=== PATIENT | male | born 1990 | race Caucasian/White ===

== ENCOUNTER 2021-09-22 20:50 | Emergency (ER) | payer OTHER ==
[~2021-09-22] VITALS: Ht 182.9 cm; Wt 190.0 kg
[2021-09-23] MEDS ORDERED: MAGN296S68 PO (00:40)
[2021-09-23] MEDS ORDERED: methylnaltrexone br 12mg/0.6ml inj***SubQ only SQ ONE (00:40)
[2021-09-23] MEDS ORDERED: BISA-78 PO (00:40)
[2021-09-23] MEDS ORDERED: bisacodyl 5mg tablet.DR PO ONE (00:40)
[2021-09-23 00:58] VITALS: BP 139/89
== END 2021-09-23 00:59 | disposition home or self-care (01) ==
LOC: ER 20:53
DX: K59.00 Constipation, unspecified (principal); G89.29 Other chronic pain; Z79.899 Other long term (current) drug therapy
CPT/HCPCS: 96372; 99283; J2212

== ENCOUNTER 2021-10-13 20:36 | Emergency (ER) | payer OTHER ==
[~2021-10-13] VITALS: Ht 182.9 cm; Wt 90.9 kg
[~2021-10-13 20:36] MED LIST: BISA-78 PO; MAGN296S68 PO
[2021-10-13 21:19] VITALS: BP 128/87
[2021-10-14] MEDS ORDERED: GLYC-23 RC (00:11)
[2021-10-14] MEDS ORDERED: bisacodyl 5mg tablet.DR PO STA (00:11)
[2021-10-14] MEDS ORDERED: BISA-78 PO (00:11)
== END 2021-10-14 00:32 | disposition home or self-care (01) ==
LOC: ER 20:36
DX: K59.00 Constipation, unspecified (principal); G89.29 Other chronic pain; Z79.899 Other long term (current) drug therapy
CPT/HCPCS: 99282

== ENCOUNTER 2021-10-14 14:51 | Emergency (ER) | payer OTHER ==
[~2021-10-14] VITALS: Ht 182.9 cm; Wt 100.0 kg
[~2021-10-14 14:51] MED LIST changes: +GLYC-23 RC
[2021-10-14 15:05] VITALS: BP 156/99
[2021-10-14] MEDS ORDERED: lactulose 20gm/30ml cup PO ONE (15:25)
[2021-10-14] MEDS ORDERED: methylnaltrexone br 12mg/0.6ml inj***SubQ only SQ ONE (15:25)
== END 2021-10-14 15:46 | disposition home or self-care (01) ==
LOC: ER 14:52
DX: K59.03 Drug induced constipation (principal); G89.29 Other chronic pain; F19.90 Other psychoactive substance use, unspecified, uncomplicated; Z79.899 Other long term (current) drug therapy
CPT/HCPCS: 74018; 96372; 99283; J2212

== ENCOUNTER 2021-11-06 09:24 | Emergency (ER) | payer OTHER ==
[~2021-11-06] VITALS: Ht 182.9 cm; Wt 90.0 kg
[2021-11-06 09:43] VITALS: BP 140/85
== END 2021-11-06 11:57 | disposition home or self-care (01) ==
LOC: ER 09:25
DX: K59.03 Drug induced constipation (principal); T40.0X5A Adverse effect of opium, initial encounter; R19.7 Diarrhea, unspecified; G89.29 Other chronic pain; Z79.899 Other long term (current) drug therapy; Y92.89 Other specified places as the place of occurrence of the external cause
CPT/HCPCS: 74018; 99283

== ENCOUNTER 2021-12-07 02:24 | Emergency (ER) | payer SELFPAY ==
[~2021-12-07] VITALS: Ht 190.5 cm; Wt 86.4 kg
[2021-12-07] MEDS ORDERED: GLYC-23 RC (04:45)
[2021-12-07] MEDS ORDERED: bisacodyl 5mg tablet.DR PO STA (04:46)
[2021-12-07 06:45] VITALS: BP 143/93
== END 2021-12-07 06:49 | disposition home or self-care (01) ==
LOC: ER 02:25
DX: K59.03 Drug induced constipation (principal); G89.29 Other chronic pain; Z79.899 Other long term (current) drug therapy
CPT/HCPCS: 99282; 99283